=== PATIENT | male | born 1945 | race Caucasian/White ===

== ENCOUNTER 2024-01-08 12:43 | Emergency (ER) | payer OTHER ==
[~2024-01-08] VITALS: Ht 175.3 cm; Wt 61.2 kg
[~2024-01-08 12:43] MED LIST: ACET-2079 PO; AMLO5TAB4 PO; ATOR10 PO; CILO100T3 PO; CLOP-31 PO; EMPA25TA PO; ENAL-91 PO; FERR-72 PO; FURO20TA4 PO; LOSA-418 PO; METF-444 PO; MULT-1192 PO; POTA-364 PO
[2024-01-08 13:24] LABS: HEMATOCRIT 34.1 % (42-54); MEAN CORPUSCULAR HEMOGLOBIN 30.6 pg (27.0-33.0); RED BLOOD CELL COUNT(AUTO) 3.79 MIL/uL (4.50-6.20); RED CELL DISTRIBUTION WIDTH 12.9 % (11.0-15.5)
[2024-01-08 13:35] LABS: CREATININE 0.8 mg/dL (0.5-1.5); POTASSIUM 3.7 mmol/L (3.5-5.1)
[2024-01-08 13:42] LABS: ALBUMIN 2.7 g/dL (3.5-5.0); BILIRUBIN,TOTAL 0.3 mg/dL (0.2-1.0)
[2024-01-08] MEDS ORDERED: MAGN400T7 PO (15:06)
[2024-01-08] MEDS ORDERED: COMP1EAC MC (15:09)
[2024-01-08] MEDS: MAGNESIUM OXIDE 400 MG TABLET PO ONE (15:17)
[2024-01-08] MEDS: FUROSEMIDE 20MG VIAL IV ONE (15:17)
[2024-01-08 15:35] VITALS: BP 158/60; PULSE 67; RESP 18; O2SAT 97
== END 2024-01-08 15:36 | disposition home or self-care (01) ==
LOC: EDH 12:43
DX: I73.9 Peripheral vascular disease, unspecified (principal); E83.42 Hypomagnesemia; M79.89 Other specified soft tissue disorders; I10 Essential (primary) hypertension; E11.9 Type 2 diabetes mellitus without complications; Z79.82 Long term (current) use of aspirin; Z79.84 Long term (current) use of oral hypoglycemic drugs; Z79.899 Other long term (current) drug therapy; Z98.890 Other specified postprocedural states
CPT/HCPCS: 99285; 93970; 96374; 71045; 83735; 84484; 80053; 83880; 85027; 36415; 93005; J1940

== ENCOUNTER 2024-03-24 11:06 | Day surgery (SDC) | payer OTHER ==
[2024-03-21 13:06] LABS: BASOPHILS # (AUTO) 0.09 K/uL (0.00-0.20); BASOPHILS % (AUTO) 0.6 % (0.0-5.0); EOSINOPHILS # (AUTO) 0.82 K/uL (0.00-0.70); EOSINOPHILS % (AUTO) 5.4 % (0.0-8.0); HEMATOCRIT 33.2 % (42-54); LYMPHOCYTES # (AUTO) 2.1 K/uL (1.0-4.8); LYMPHOCYTES % (AUTO) 13.8 % (21.0-51.0); MEAN CORPUSCULAR HEMOGLOBIN 30.9 pg (27.0-33.0); MEAN CORPUSCULAR HGB CONC 33.1 g/dL (32.0-36.0); MEAN CORPUSCULAR VOLUME 93.3 fL (79-99); MONOCYTES # (AUTO) 0.9 K/uL (0.1-1.0); MONOCYTES % (AUTO) 5.9 % (3.0-13.0); NEUTROPHILS # (AUTO) 11.3 K/uL (1.8-7.7); NEUTROPHILS % (AUTO) 73.6 % (40.0-77.0); PLATELET COUNT (AUTO) 417 K/uL (130-400); RED BLOOD CELL COUNT(AUTO) 3.56 MIL/uL (4.50-6.20); RED CELL DISTRIBUTION WIDTH 14.2 % (11.0-15.5); WHITE BLOOD COUNT (AUTO) 15.3 K/uL (4.8-10.8)
[2024-03-21 13:12] LABS: CREATININE 0.8 mg/dL (0.5-1.3); POTASSIUM 4.4 mmol/L (3.5-5.1)
[2024-03-21 13:19] LABS: INR <= 0.93 (0.85-1.15); PROTHROMBIN TIME 10.2 SEC (9.6-11.6)
[2024-03-21 13:20] LABS: ADD UA MICROSCOPIC YES; APPEARANCE,URINE CLEAR (CLEAR); BILIRUBIN,URINE NEGATIVE (NEGATIVE); COLOR,URINE YELLOW (YELLOW); GLUCOSE, URINE (UA) >=1000 mg/dL (NEGATIVE); KETONES,URINE NEGATIVE (NEGATIVE); LEUKOCYTE ESTERASE ,URINE NEGATIVE Leu/uL (NEGATIVE); NITRATE,URINE NEGATIVE (NEGATIVE); OCCULT BLOOD,URINE TRACE-LYSED (NEGATIVE); PH,URINE 5.5 (5.0-8.0); PROTEIN,URINE 100 mg/dL (NEGATIVE); UROBILINOGEN,URINE 0.2 mg/dL (0.2-1.0)
[2024-03-21 13:20] LABS: PARTIAL THROMBOPLASTIN TIME 33.3 SEC (26.3-35.5)
[2024-03-21 13:25] LABS: BACTERIA,URINE Rare /HPF (None Seen); RBC,URINE 0-1 /HPF (0-1); SQUAMOUS EPITHELIAL CELL,UR Rare /HPF (0-2); WBC,URINE 0-1 /HPF (0-1)
[2024-03-21 13:44] VITALS: BP 176/86; PULSE 79; RESP 19
[2024-03-21 14:08] LABS: B-TYPE NATRIURETIC PEPTIDE 35 pg/mL (0-100)
[~2024-03-24] VITALS: Ht 175.3 cm; Wt 55.3 kg
[~2024-03-24 11:06] MED LIST changes: +AMLO-258 PO; -AMLO5TAB4 PO; +AMOX1TAB16 PO; -ATOR10 PO; +ATOR20TA65 PO; -CLOP-31 PO; -FURO20TA4 PO; +FURO40TA5 PO; +HEPARIN 10,000 UNIT/10ML (1,000 UNIT/ML) VIAL ONE; +IODIXANOL 320 MG/ML 100 ML VIAL ONE; +LIDOCAINE HCL 400MG/20ML VIAL ONE; -LOSA-418 PO; -METF-444 PO; +METF-526 PO; -MULT-1192 PO; -POTA-364 PO; +SODIUM BICARB 50MEQ 50ML VIAL 0 ML ONE
[2024-03-24] MEDS ORDERED: HEPARIN 10,000 UNIT/10ML (1,000 UNIT/ML) VIAL ONE (12:51)
[2024-03-24] MEDS ORDERED: IODIXANOL 320 MG/ML 100 ML VIAL ONE (12:51)
[2024-03-24] MEDS ORDERED: NITROGLYCERIN 50MG VIAL ONE (12:51)
[2024-03-24] MEDS ORDERED: LIDOCAINE HCL 400MG/20ML VIAL ONE (12:51)
== END 2024-03-24 14:00 | disposition home or self-care (01) ==
LOC: DAH 11:06
PROVIDERS: ATTEND Internal Medicine Cardiovascular Disease
DX: I70.238 Atherosclerosis of native arteries of right leg with ulceration of other part of lower leg (principal); L97.818 Non-pressure chronic ulcer of other part of right lower leg with other specified severity; E11.51 Type 2 diabetes mellitus with diabetic peripheral angiopathy without gangrene; Q63.1 Lobulated, fused and horseshoe kidney; I10 Essential (primary) hypertension; E78.5 Hyperlipidemia, unspecified; Z53.8 Procedure and treatment not carried out for other reasons; Z86.73 Personal history of transient ischemic attack (TIA), and cerebral infarction without residual deficits; Z82.49 Family history of ischemic heart disease and other diseases of the circulatory system; Z79.84 Long term (current) use of oral hypoglycemic drugs; Z79.01 Long term (current) use of anticoagulants; Z79.899 Other long term (current) drug therapy
CPT/HCPCS: 71045; 80048; 83880; 85025; 85610; 85730; 81001; 36415; 93005; 82948; J3490 ×2; J1644; Q9967

== ENCOUNTER → 2024-05-27 | Outpatient (CLI) | payer OTHER ==
[~2024-05-27] MED LIST changes: -HEPARIN 10,000 UNIT/10ML (1,000 UNIT/ML) VIAL ONE; -IODIXANOL 320 MG/ML 100 ML VIAL ONE; -LIDOCAINE HCL 400MG/20ML VIAL ONE; -SODIUM BICARB 50MEQ 50ML VIAL 0 ML ONE
[2024-05-27 16:29] LABS: ALBUMIN 2.6 g/dL (3.5-5.0); BILIRUBIN,TOTAL 0.3 mg/dL (0.2-1.0); CREATININE 0.9 mg/dL (0.5-1.3); POTASSIUM 4.1 mmol/L (3.5-5.1)
== END | disposition home or self-care (01) ==
LOC: LAB 13:29
PROVIDERS: ATTEND Internal Medicine Cardiovascular Disease
DX: G89.29 Other chronic pain (principal); I73.9 Peripheral vascular disease, unspecified
CPT/HCPCS: 36415; 80053

== ENCOUNTER → 2024-06-24 | Outpatient (CLI) | payer OTHER ==
[~2024-06-24] MED LIST changes: +IOHEXOL 350 MG/ML 100ML INFUS..BTL IV ONE; +IOHEXOL-350 50ML VIAL IV ONE
== END | disposition home or self-care (01) ==
LOC: EDSTATUS 06-09 09:30 → RAH 06-20 09:49
PROVIDERS: ATTEND Internal Medicine Cardiovascular Disease
DX: I70.203 Unspecified atherosclerosis of native arteries of extremities, bilateral legs (principal); I70.0 Atherosclerosis of aorta
CPT/HCPCS: 75635; Q9967 ×2

== ENCOUNTER → 2024-06-25 | Outpatient (CLI) | payer OTHER ==
[~2024-06-25] MED LIST changes: -IOHEXOL 350 MG/ML 100ML INFUS..BTL IV ONE; -IOHEXOL-350 50ML VIAL IV ONE
[2024-06-25 16:30] LABS: APPEARANCE,URINE CLOUDY (CLEAR); BILIRUBIN,URINE NEGATIVE (NEGATIVE); COLOR,URINE YELLOW (YELLOW); GLUCOSE, URINE (UA) >=1000 mg/dL (NEGATIVE); KETONES,URINE NEGATIVE (NEGATIVE); LEUKOCYTE ESTERASE ,URINE 500 Leu/uL (NEGATIVE); NITRATE,URINE NEGATIVE (NEGATIVE); OCCULT BLOOD,URINE SMALL (NEGATIVE); PROTEIN,URINE 50 mg/dL (NEGATIVE); UROBILINOGEN,URINE 0.2 mg/dL (0.2-1.0)
[2024-06-25 17:01] LABS: ADD UA MICROSCOPIC YES
[2024-06-25 17:27] LABS: BACTERIA,URINE RARE /HPF (None Seen); MUCUS,URINE RARE LPF (None Seen); OTHER CASTS, URINE 4 /LPF (None Seen); UNCLASSIFIED CRYSTAL 3 /HPF (None Seen); WBC CLUMP RARE /HPF (0-1); WBC,URINE 26-50 /HPF (0-1); YEAST,URINE BUDDING MOD /HPF (None Seen); YEAST,URINE HYPHAE RARE /HPF (None Seen)
== END | disposition home or self-care (01) ==
LOC: LAB 15:50
PROVIDERS: ATTEND Internal Medicine Cardiovascular Disease
DX: N39.0 Urinary tract infection, site not specified (principal)
CPT/HCPCS: 81001; 87086

== ENCOUNTER → 2024-10-24 | Outpatient (CLI) | payer OTHER ==
[2024-10-24 16:19] LABS: CREATININE 0.9 mg/dL (0.5-1.3)
== END | disposition home or self-care (01) ==
LOC: LAB 11:26
PROVIDERS: ATTEND Internal Medicine Cardiovascular Disease
DX: I35.0 Nonrheumatic aortic (valve) stenosis (principal)
CPT/HCPCS: 36415; 80048